=== PATIENT | male | born 1985 | race Caucasian/White ===

== ENCOUNTER 2018-06-03 12:04 | Emergency (ER) | payer BC ==
[~2018-06-03] VITALS: Ht 175.3 cm; Wt 70.3 kg
--- NOTE | 2018-06-03 12:38 | NUR ---
Patient discharged to home in stable conditon. Written and verbal after care instructions given. Patient verbalizes understanding of instructions.PT WALKS IN STEADY GAIT.
== END 2018-06-03 12:40 | disposition home or self-care (01) ==
LOC: ER 12:08
DX: J32.9 Chronic sinusitis, unspecified (principal); R05 Cough; F17.200 Nicotine dependence, unspecified, uncomplicated
CPT/HCPCS: 99283; A4663

== ENCOUNTER → 2025-02-10 | Emergency (ER) | payer BC, OTHER | END | disposition left against medical advice (07) | LOC: ER 20:47 | DX: R30.9 Painful micturition, unspecified (principal); Z53.21 Procedure and treatment not carried out due to patient leaving prior to being seen by health care provider ==